=== PATIENT | female | born 1970 | race Caucasian/White ===

== ENCOUNTER 2017-01-06 01:04 | Emergency (ER) | payer MEDICAID ==
[~2017-01-06] VITALS: Ht 157.5 cm; Wt 85.0 kg
[~2017-01-06 01:04] MED LIST: ALBU18HF; ALBU2TAB PO; ALBU8.5H5 INH; AMOX-291 PO; ARIP5TAB19 PO; BECL8.7A5 INH; BUSP5TAB2 PO; CLON0.1T12 PO; DIVA500T2 PO; ESCI20TA10 PO; FAMO20TA7 PO; FERR325T20 PO; FLUO20TA25 PO; GABA300C10 PO; GABA800T2 PO; HALDOL; HYDR-3240 PO; HYDR1TAB12 PO; LISI-424 PO; LORA-445 PO; LORA2TAB99 PO; MULT1TAB76 PO; NICO1PAT5 TD; NITR100C6 PO; PRAZ1CAP2 PO; QUET100T4 PO; QUET50TA5 PO; RANI300T3 PO; THIA50TA PO; TRAZODONE; ZOLOFT; depakote; hydroxyzine
[2017-01-06 01:16] VITALS: BP 120/79
== END 2017-01-06 02:05 | disposition left against medical advice (07) ==
LOC: ED 01:59
DX: R45.851 Suicidal ideations (principal); Z53.21 Procedure and treatment not carried out due to patient leaving prior to being seen by health care provider

== ENCOUNTER 2017-01-14 17:41 | Inpatient (IN) | payer MEDICAID ==
[~2017-01-14] VITALS: Ht 167.6 cm; Wt 90.1 kg
[2017-01-14] MEDS ORDERED: QUET100T PO (18:02)
[2017-01-14] MEDS ORDERED: QUET200T PO (18:02)
[2017-01-14] MEDS ORDERED: NALOXONE 0.4 MG/ML, 1ML ONE ×2 (18:25→19:45)
[2017-01-14] MEDS ORDERED: NALOXONE 0.4 MG/ML, 1ML IVPush PRN (18:30)
[2017-01-14 18:55] LABS: HEMOGLOBIN 14.3 g/dL (11.7-16.4)
[2017-01-14 18:59] LABS: BLOOD UREA NITROGEN 6 mg/dL (7-18)
[2017-01-14 19:11] LABS: ACETAMINOPHEN < 2 mcg/mL (10-30)
[2017-01-14] MEDS ORDERED: NALOXONE 1 MG/ML, 2ML ONE (19:47)
[2017-01-14] MEDS ORDERED: NALOXONE IV SCH (20:00)
[2017-01-14] MEDS ORDERED: SODIUM CHLORIDE 0.9% 1,000ML IVBOLUS ONE (20:00)
[2017-01-14] MEDS ORDERED: NALOXONE 1 MG/ML, 2ML IVPush ONE ×2 (20:00)
[2017-01-14] MEDS ORDERED: SODIUM CHLORIDE 0.9% IV SCH (20:00)
[2017-01-14] MEDS ORDERED: NALOXONE 10 MG in SODIUM CHLORIDE 0.9% 1,000 ML IV SCH (20:30)
[2017-01-14] MEDS: NALOXONE 10 MG in SODIUM CHLORIDE 0.9% 1,000 ML IV SCH (20:54)
[2017-01-14] MEDS ORDERED: POLYETHYLENE GLYCOL 17 GM PACKET PO PRN (21:30)
[2017-01-14] MEDS ORDERED: DOCUSATE 100 MG CAPSULE PO PRN (21:30)
[2017-01-14] MEDS ORDERED: LABETALOL 5MG/ML, 20ML IV PRN (21:30)
[2017-01-14] MEDS ORDERED: ONDANSETRON 2MG/ML, 2ML IVP PRN (21:30)
[2017-01-14] MEDS ORDERED: BISACODYL 10 MG SUPP PR PRN (21:30)
[2017-01-14] MEDS ORDERED: NS + 20MEQ KCL 1,000 ML IV ONE (22:39)
[2017-01-14] MEDS ORDERED: ENOXAPARIN 40 MG/0.4 ML ONE (22:39)
[2017-01-14] MEDS ORDERED: FAMOTIDINE 20 MG/2 ML ONE (22:41)
[2017-01-14] MEDS: NS + 20MEQ KCL 1,000 ML IV SCH (22:42)
[2017-01-14] MEDS: FAMOTIDINE 20 MG/2 ML IV SCH (22:43)
[2017-01-14] MEDS: ENOXAPARIN 40 MG/0.4 ML SQ SCH (22:45)
[2017-01-15 01:25] LABS: DAU SCREEN DISCLAIMER
[2017-01-15] MEDS ORDERED: NALOXONE 1 MG/ML, 2ML ONE (02:18)
[2017-01-15] MEDS: NALOXONE 10 MG in SODIUM CHLORIDE 0.9% 1,000 ML IV SCH ×3 (02:22→11:29)
[2017-01-15] MEDS ORDERED: NS + 20MEQ KCL 1,000 ML IV ONE (04:34)
[2017-01-15] MEDS: NS + 20MEQ KCL 1,000 ML IV SCH ×3 (04:37→22:26)
[2017-01-15] MEDS ORDERED: TRAZ100T15 PO (05:40)
[2017-01-15] MEDS ORDERED: FLUO10CA13 PO (05:40)
[2017-01-15 09:12] LABS: ASPARTATE AMINO TRANSFERASE 13 U/L (15-37); BLOOD UREA NITROGEN 6 mg/dL (7-18)
[2017-01-15] MEDS ORDERED: FAMOTIDINE 20 MG/2 ML ONE (09:17)
[2017-01-15] MEDS: FAMOTIDINE 20 MG/2 ML IV SCH (09:19)
[2017-01-15 11:26] VITALS: BP 141/91
[2017-01-15 13:41] VITALS: BP 128/80
[2017-01-15 18:36] VITALS: BP 120/77
[2017-01-15] MEDS: ENOXAPARIN 40 MG/0.4 ML SQ SCH (21:57)
[2017-01-15] MEDS: LORazepam 2 MG/ML, 1ML IVPush PRN (22:27)
[2017-01-16] MEDS: LORazepam 2 MG/ML, 1ML IVPush PRN ×3 (01:17→09:03)
[2017-01-16 01:19] VITALS: BP 136/64
[2017-01-16] MEDS: NS + 20MEQ KCL 1,000 ML IV SCH ×3 (06:51→23:08)
[2017-01-16 06:54] VITALS: BP 145/92
[2017-01-16 14:18] VITALS: BP 152/90
[2017-01-16] MEDS: ACETAMINOPHEN 325 MG TABLET PO PRN (14:42)
[2017-01-16 19:17] VITALS: BP 137/86
[2017-01-16] MEDS: ENOXAPARIN 40 MG/0.4 ML SQ SCH (21:18)
[2017-01-17] VITALS (8 sets, daily range): BP systolic 147–171; BP diastolic 88–113
[2017-01-17] MEDS: NS + 20MEQ KCL 1,000 ML IV SCH ×2 (08:51→15:16)
[2017-01-17] MEDS: ACETAMINOPHEN 325 MG TABLET PO PRN (13:34)
[2017-01-17] MEDS: LISINOPRIL 5 MG TABLET PO SCH (20:01)
[2017-01-17] MEDS: ENOXAPARIN 40 MG/0.4 ML SQ SCH (21:30)
[2017-01-18 04:02] VITALS: BP 140/87
[2017-01-18 08:45] VITALS: BP 124/81
[2017-01-18] MEDS: LISINOPRIL 5 MG TABLET PO SCH (09:32)
[2017-01-18] MEDS: ACETAMINOPHEN 325 MG TABLET PO PRN (09:32)
[2017-01-18] MEDS ORDERED: ONDANSETRON 4 MG TABLET PO PRN (13:00)
[2017-01-18] MEDS ORDERED: BUTALB/APAP/CAFFEINE 50MG/325MG/40MG PO PRN (13:00)
== END 2017-01-18 18:50 | DRG 918 ==
LOC: ED 18:09 → EDIP 20:45 → 5SO 01-15 11:11 → 3E 01-17 17:00
PROVIDERS: ADMIT Internal Medicine; ATTEND Internal Medicine
DX: T42.8X2A Poisoning by antiparkinsonism drugs and other central muscle-tone depressants, intentional self-harm, initial encounter (principal); T42.6X2A Poisoning by other antiepileptic and sedative-hypnotic drugs, intentional self-harm, initial encounter; F43.10 Post-traumatic stress disorder, unspecified; F32.9 Major depressive disorder, single episode, unspecified; I10 Essential (primary) hypertension; Z91.5 Personal history of self-harm; Z83.3 Family history of diabetes mellitus; F17.210 Nicotine dependence, cigarettes, uncomplicated; Y92.89 Other specified places as the place of occurrence of the external cause; E87.6 Hypokalemia; E88.09 Other disorders of plasma-protein metabolism, not elsewhere classified; G89.29 Other chronic pain; M54.9 Dorsalgia, unspecified; J44.9 Chronic obstructive pulmonary disease, unspecified
CPT/HCPCS: 36415; 71010; 80048; 80053; 80307; 80329; 82040; 83735; 84439; 84443; 84703; 85025; 93005; 96361; 96372; 96374; 96375; J1650; J2310; J3480; G0480; J2060; J7030; S0028

== ENCOUNTER 2017-02-04 11:30 | Observation (INO) | payer MEDICAID ==
[~2017-02-04] VITALS: Ht 157.5 cm; Wt 83.0 kg
[~2017-02-04 11:30] MED LIST changes: +FLUO10CA13 PO; +QUET100T PO; +QUET200T PO; +TRAZ100T15 PO
[2017-02-04 12:28] LABS: ASPARTATE AMINO TRANSFERASE 20 U/L (15-37); BLOOD UREA NITROGEN 14 mg/dL (7-18)
[2017-02-04 12:39] LABS: HEMOGLOBIN 16.2 g/dL (11.7-16.4)
[2017-02-04 12:43] LABS: ACETAMINOPHEN < 2 mcg/mL (10-30)
[2017-02-04 13:34] LABS: DAU SCREEN DISCLAIMER
[2017-02-04] MEDS ORDERED: POTASSIUM CHLORIDE 20 MEQ TAB.ER.PRT PO ONE (17:30)
[2017-02-04] MEDS ORDERED: POLYETHYLENE GLYCOL 17 GM PACKET PO PRN (17:30)
[2017-02-04] MEDS ORDERED: ONDANSETRON ODT 4 MG PO PRN (17:30)
[2017-02-04] MEDS ORDERED: POTASSIUM CHLORIDE 20 MEQ TAB.ER.PRT ONE (18:20)
[2017-02-04 19:46] VITALS: BP 137/84
[2017-02-04] MEDS ORDERED: LORazepam 0.5MG TABLET PO ONE (23:00)
[2017-02-05 05:43] LABS: BLOOD UREA NITROGEN 17 mg/dL (7-18)
[2017-02-05 05:45] LABS: HEMOGLOBIN 14.4 g/dL (11.7-16.4)
[2017-02-05 05:48] LABS: ASPARTATE AMINO TRANSFERASE 16 U/L (15-37)
[2017-02-05 07:40] VITALS: BP 129/81
[2017-02-05] MEDS: FOLIC ACID 1 MG TABLET PO SCH (08:15)
[2017-02-05] MEDS: THIAMINE 100MG TABLET PO SCH (08:15)
[2017-02-05] MEDS: SENNA/DOCUSATE TABLET PO SCH (08:17)
[2017-02-05] MEDS: LISINOPRIL 5 MG TABLET PO SCH (09:00)
[2017-02-05] MEDS: FLUOXETINE 20 MG CAPSULE PO SCH (09:00)
[2017-02-05] MEDS ORDERED: ALBUTEROL SULFATE 2.5 MG/3 ML HHN PRN (09:30)
[2017-02-05 19:39] VITALS: BP 127/65
[2017-02-06 07:56] VITALS: BP 133/80
[2017-02-06] MEDS: THIAMINE 100MG TABLET PO SCH (08:50)
[2017-02-06] MEDS: FLUOXETINE 20 MG CAPSULE PO SCH (08:50)
[2017-02-06] MEDS: LISINOPRIL 5 MG TABLET PO SCH (08:51)
[2017-02-06] MEDS: SENNA/DOCUSATE TABLET PO SCH (08:51)
[2017-02-06] MEDS: FOLIC ACID 1 MG TABLET PO SCH (08:51)
[2017-02-06 19:57] VITALS: BP 110/75
[2017-02-06] MEDS ORDERED: CETIRIZINE 10 MG TABLET PO ONE (20:00)
[2017-02-06] MEDS: TRAZODONE 100MG TABLET PO SCH (22:00)
[2017-02-06] MEDS: GABAPENTIN 400 MG CAPSULE PO SCH (22:00)
[2017-02-06] MEDS: FAMOTIDINE 20 MG TABLET PO SCH (22:00)
[2017-02-06] MEDS: QUETIAPINE 200 MG TABLET PO SCH (22:00)
[2017-02-07] MEDS: FLUTICASONE NASAL SPRAY 16GM NAS SCH ×3 (08:00→21:00)
[2017-02-07] MEDS: FLUTICASONE/VILANTEROL 100-25MCG/INH INH SCH ×3 (08:00→22:01)
[2017-02-07] MEDS: GABAPENTIN 400 MG CAPSULE PO SCH ×3 (08:01→21:56)
[2017-02-07] MEDS: CETIRIZINE 10 MG TABLET PO SCH (08:01)
[2017-02-07] MEDS: QUETIAPINE 100MG TABLET PO SCH (08:01)
[2017-02-07] MEDS: THIAMINE 100MG TABLET PO SCH (08:01)
[2017-02-07] MEDS: FOLIC ACID 1 MG TABLET PO SCH (08:02)
[2017-02-07] MEDS: FLUOXETINE 20 MG CAPSULE PO SCH (08:02)
[2017-02-07] MEDS: FAMOTIDINE 20 MG TABLET PO SCH ×2 (08:02→21:56)
[2017-02-07] MEDS: SENNA/DOCUSATE TABLET PO SCH (08:03)
[2017-02-07] MEDS: LISINOPRIL 5 MG TABLET PO SCH (08:03)
[2017-02-07 08:14] VITALS: BP 90/55
[2017-02-07 19:46] VITALS: BP 110/70
[2017-02-07] MEDS: TRAZODONE 100MG TABLET PO SCH (21:56)
[2017-02-07] MEDS: QUETIAPINE 200 MG TABLET PO SCH (21:59)
[2017-02-08 08:52] VITALS: BP 101/57
[2017-02-08] MEDS: LISINOPRIL 5 MG TABLET PO SCH (09:00)
[2017-02-08] MEDS: QUETIAPINE 100MG TABLET PO SCH (09:00)
[2017-02-08] MEDS: FLUTICASONE NASAL SPRAY 16GM NAS SCH ×2 (09:00→20:45)
[2017-02-08] MEDS: SENNA/DOCUSATE TABLET PO SCH (09:02)
[2017-02-08] MEDS: FAMOTIDINE 20 MG TABLET PO SCH ×2 (09:03→20:46)
[2017-02-08] MEDS: GABAPENTIN 400 MG CAPSULE PO SCH ×2 (09:03→16:09)
[2017-02-08] MEDS: CETIRIZINE 10 MG TABLET PO SCH (09:03)
[2017-02-08] MEDS: THIAMINE 100MG TABLET PO SCH (09:03)
[2017-02-08] MEDS: FLUOXETINE 20 MG CAPSULE PO SCH (09:03)
[2017-02-08] MEDS: FOLIC ACID 1 MG TABLET PO SCH (09:03)
[2017-02-08] MEDS: ACETAMINOPHEN 325 MG TABLET PO PRN (18:34)
[2017-02-08 19:44] VITALS: BP 137/93
[2017-02-08] MEDS: TRAZODONE 100MG TABLET PO SCH (20:46)
[2017-02-08] MEDS: QUETIAPINE 200 MG TABLET PO SCH (20:46)
[2017-02-08] MEDS: GABAPENTIN 300 MG CAPSULE PO SCH (20:46)
[2017-02-09] MEDS: ACETAMINOPHEN 325 MG TABLET PO PRN ×2 (06:02→13:03)
[2017-02-09] MEDS: FLUTICASONE NASAL SPRAY 16GM NAS SCH ×2 (07:39→21:00)
[2017-02-09] MEDS: GABAPENTIN 300 MG CAPSULE PO SCH ×3 (07:40→20:31)
[2017-02-09] MEDS: FLUOXETINE 20 MG CAPSULE PO SCH (07:41)
[2017-02-09] MEDS: FAMOTIDINE 20 MG TABLET PO SCH ×2 (07:41→20:31)
[2017-02-09] MEDS: SENNA/DOCUSATE TABLET PO SCH (07:41)
[2017-02-09] MEDS: FOLIC ACID 1 MG TABLET PO SCH (07:42)
[2017-02-09] MEDS: LISINOPRIL 5 MG TABLET PO SCH (07:42)
[2017-02-09] MEDS: THIAMINE 100MG TABLET PO SCH (07:42)
[2017-02-09] MEDS: QUETIAPINE 100MG TABLET PO SCH (07:43)
[2017-02-09] MEDS: CETIRIZINE 10 MG TABLET PO SCH (07:43)
[2017-02-09] MEDS: FLUTICASONE/VILANTEROL 100-25MCG/INH INH SCH ×2 (07:44→20:32)
[2017-02-09 08:42] VITALS: BP 135/84
[2017-02-09] MEDS ORDERED: NICOTINE GUM 2 MG BC PRN (19:00)
[2017-02-09 19:27] VITALS: BP 141/80
[2017-02-09] MEDS: QUETIAPINE 200 MG TABLET PO SCH (20:31)
[2017-02-09] MEDS: TRAZODONE 100MG TABLET PO SCH (20:31)
[2017-02-10] MEDS ORDERED: CYCLOBENZAPRINE 10 MG TABLET PO ONE (02:00)
[2017-02-10] MEDS ORDERED: HYDROcodone/APAP 5/325 TABLET PO ONE (02:00)
[2017-02-10] MEDS: FLUTICASONE/VILANTEROL 100-25MCG/INH INH SCH (07:07)
[2017-02-10] MEDS: GABAPENTIN 300 MG CAPSULE PO SCH (07:08)
[2017-02-10] MEDS: FLUTICASONE NASAL SPRAY 16GM NAS SCH (07:08)
[2017-02-10] MEDS: FOLIC ACID 1 MG TABLET PO SCH (07:10)
[2017-02-10] MEDS: LISINOPRIL 5 MG TABLET PO SCH (07:10)
[2017-02-10] MEDS: FLUOXETINE 20 MG CAPSULE PO SCH (07:10)
[2017-02-10] MEDS: FAMOTIDINE 20 MG TABLET PO SCH (07:10)
[2017-02-10] MEDS: CETIRIZINE 10 MG TABLET PO SCH (07:11)
[2017-02-10] MEDS: SENNA/DOCUSATE TABLET PO SCH (07:11)
[2017-02-10] MEDS: QUETIAPINE 100MG TABLET PO SCH (07:11)
[2017-02-10] MEDS: THIAMINE 100MG TABLET PO SCH (07:11)
[2017-02-10 07:25] VITALS: BP 134/82
== END 2017-02-10 08:39 ==
LOC: ED 14:21 → EDIP 15:28 → INTOOBSV 15:28 → 3E 17:37
PROVIDERS: ADMIT Hospitalist; ATTEND Hospitalist
DX: T42.6X2A Poisoning by other antiepileptic and sedative-hypnotic drugs, intentional self-harm, initial encounter (principal); E44.1 Mild protein-calorie malnutrition; F32.9 Major depressive disorder, single episode, unspecified; F41.9 Anxiety disorder, unspecified; J45.909 Unspecified asthma, uncomplicated; I10 Essential (primary) hypertension; M54.9 Dorsalgia, unspecified; F15.10 Other stimulant abuse, uncomplicated; J44.9 Chronic obstructive pulmonary disease, unspecified; F10.229 Alcohol dependence with intoxication, unspecified; F17.210 Nicotine dependence, cigarettes, uncomplicated; Y92.89 Other specified places as the place of occurrence of the external cause
CPT/HCPCS: 36415; 80053; 80307; 80329; 81001; 84439; 84443; 84703; 85025; 87086; 93005; 99285; G0378; Q0177; G0480

== ENCOUNTER 2017-03-18 09:24 | Emergency (ER) | payer MEDICAID ==
[~2017-03-18] VITALS: Ht 157.5 cm; Wt 85.2 kg
[2017-03-18] MEDS ORDERED: SODIUM CHLORIDE 0.9% 1,000 ML IV ONE (11:17)
[2017-03-18] MEDS ORDERED: SODIUM CHLORIDE FLUSH 10ML SYR IVF ONE (11:30)
[2017-03-18] MEDS ORDERED: THIAMINE 100MG TABLET PO ONE (11:30)
[2017-03-18] MEDS ORDERED: SODIUM CHLORIDE 0.9% 1,000ML IVBOLUS ONE (11:30)
[2017-03-18 11:55] LABS: ASPARTATE AMINO TRANSFERASE 26 U/L (15-37); BLOOD UREA NITROGEN 16 mg/dL (7-18)
[2017-03-18 12:03] LABS: ACETAMINOPHEN < 2 mcg/mL (10-30)
[2017-03-18] MEDS ORDERED: THIAMINE 100MG TABLET ONE (12:08)
[2017-03-18 13:44] LABS: DAU SCREEN DISCLAIMER
[2017-03-18 14:53] VITALS: BP 123/60
== END 2017-03-18 15:03 | disposition home or self-care (01) ==
LOC: ED 11:01
DX: F15.10 Other stimulant abuse, uncomplicated (principal); F15.120 Other stimulant abuse with intoxication, uncomplicated; N30.90 Cystitis, unspecified without hematuria; I10 Essential (primary) hypertension; J44.9 Chronic obstructive pulmonary disease, unspecified; F17.200 Nicotine dependence, unspecified, uncomplicated
CPT/HCPCS: 36415; 70450; 80053; 80307; 80329; 81001; 82140; 84703; 85025; 87086; 93005; 96360; 96361; 99285; J7030; G0480

== ENCOUNTER 2017-03-21 13:26 | Emergency (ER) | payer MEDICAID ==
[~2017-03-21] VITALS: Ht 157.5 cm; Wt 82.0 kg
[2017-03-21 13:41] VITALS: BP 125/82
[2017-03-21 14:21] LABS: ASPARTATE AMINO TRANSFERASE 19 U/L (15-37); BLOOD UREA NITROGEN 8 mg/dL (7-18)
[2017-03-21 14:31] LABS: ACETAMINOPHEN < 2 mcg/mL (10-30)
== END 2017-03-21 16:41 | disposition home or self-care (01) ==
LOC: ED 15:33
DX: F33.8 Other recurrent depressive disorders (principal); I10 Essential (primary) hypertension; J44.9 Chronic obstructive pulmonary disease, unspecified; Z88.1 Allergy status to other antibiotic agents; Z72.9 Problem related to lifestyle, unspecified
CPT/HCPCS: 36415; 71010; 80053; 80307; 80329; 82140; 85025; 93005; 99285; G0480

== ENCOUNTER 2017-05-08 20:24 | Observation (INO) | payer MEDICAID ==
[~2017-05-08] VITALS: Ht 157.5 cm; Wt 82.5 kg
[2017-05-08 21:20] LABS: ASPARTATE AMINO TRANSFERASE 272 U/L (15-37); BLOOD UREA NITROGEN 8 mg/dL (7-18)
[2017-05-08 21:21] LABS: ACETAMINOPHEN < 2 mcg/mL (10-30)
[2017-05-08 23:48] LABS: DAU SCREEN DISCLAIMER
[2017-05-09] MEDS ORDERED: POTASSIUM CHLORIDE 20 MEQ TAB.ER.PRT PO ONE (05:30)
[2017-05-09] MEDS ORDERED: BISACODYL 10 MG SUPP PR PRN (06:00)
[2017-05-09] MEDS ORDERED: ALBUTEROL SULFATE 2.5 MG/3 ML NPPB PRN (06:00)
[2017-05-09] MEDS ORDERED: DOCUSATE 100 MG CAPSULE PO PRN (06:00)
[2017-05-09] MEDS ORDERED: POLYETHYLENE GLYCOL 17 GM PACKET PO PRN (06:00)
[2017-05-09] MEDS ORDERED: LORazepam 1MG TABLET PO PRN ×2 (06:00)
[2017-05-09 06:07] VITALS: BP 123/82
[2017-05-09] MEDS: QUETIAPINE 25MG TABLET PO SCH ×2 (06:09→20:13)
[2017-05-09] MEDS: NICOTINE 14MG/24 HR PATCH.TD24 TD SCH (06:09)
[2017-05-09 07:41] VITALS: BP 121/74
[2017-05-09] MEDS: MULTIVITAMINS/MINERALS TABLET PO SCH (08:17)
[2017-05-09] MEDS ORDERED: QUET25TA PO (08:34)
[2017-05-09] MEDS: ENOXAPARIN 40 MG/0.4 ML SQ SCH (09:32)
[2017-05-09] MEDS: LORazepam 1MG TABLET PO PRN (16:53)
[2017-05-09 19:34] VITALS: BP 148/89
[2017-05-09] MEDS: SULFAMETH./TRIMETHOPRIM DS 800MG/160MG TABLET PO SCH (20:13)
[2017-05-09 23:40] VITALS: BP 141/83
[2017-05-10] MEDS: LORazepam 0.5MG TABLET PO PRN (04:59)
[2017-05-10 05:18] LABS: ASPARTATE AMINO TRANSFERASE 44 U/L (15-37); BLOOD UREA NITROGEN 13 mg/dL (7-18)
[2017-05-10 07:33] VITALS: BP 120/74
[2017-05-10] MEDS: ONDANSETRON ODT 4 MG PO PRN (08:29)
[2017-05-10] MEDS: ENOXAPARIN 40 MG/0.4 ML SQ SCH (08:29)
[2017-05-10] MEDS: MULTIVITAMINS/MINERALS TABLET PO SCH (08:29)
[2017-05-10] MEDS: SULFAMETH./TRIMETHOPRIM DS 800MG/160MG TABLET PO SCH ×2 (08:29→21:00)
[2017-05-10] MEDS: NICOTINE 14MG/24 HR PATCH.TD24 TD SCH (08:30)
[2017-05-10] MEDS: LORazepam 1MG TABLET PO PRN ×2 (12:24→22:15)
[2017-05-10 19:44] VITALS: BP 150/96
[2017-05-10] MEDS: QUETIAPINE 25MG TABLET PO SCH (21:00)
[2017-05-11 07:41] VITALS: BP 116/76
[2017-05-11] MEDS: SULFAMETH./TRIMETHOPRIM DS 800MG/160MG TABLET PO SCH ×2 (09:14→20:38)
[2017-05-11] MEDS: MULTIVITAMINS/MINERALS TABLET PO SCH (09:14)
[2017-05-11] MEDS: ENOXAPARIN 40 MG/0.4 ML SQ SCH (09:15)
[2017-05-11] MEDS: QUETIAPINE 25MG TABLET PO SCH ×2 (09:17→12:28)
[2017-05-11] MEDS: NICOTINE 14MG/24 HR PATCH.TD24 TD SCH (09:17)
[2017-05-11] MEDS ORDERED: QUET25TA PO (11:03)
[2017-05-11] MEDS: LORazepam 1MG TABLET PO PRN ×2 (16:53→22:44)
[2017-05-11 20:30] VITALS: BP 143/90
[2017-05-11] MEDS: QUETIAPINE 100MG TABLET PO SCH (20:38)
[2017-05-11] MEDS: ACETAMINOPHEN 325 MG TABLET PO PRN (20:38)
[2017-05-12 08:20] VITALS: BP 123/79
[2017-05-12] MEDS: MULTIVITAMINS/MINERALS TABLET PO SCH (09:56)
[2017-05-12] MEDS: QUETIAPINE 25MG TABLET PO SCH ×2 (09:56→13:19)
[2017-05-12] MEDS: NICOTINE 14MG/24 HR PATCH.TD24 TD SCH (09:57)
[2017-05-12] MEDS: SULFAMETH./TRIMETHOPRIM DS 800MG/160MG TABLET PO SCH ×2 (09:57→20:32)
[2017-05-12] MEDS: ENOXAPARIN 40 MG/0.4 ML SQ SCH (09:57)
[2017-05-12] MEDS: LORazepam 1MG TABLET PO PRN ×2 (12:13→17:28)
[2017-05-12] MEDS: ACETAMINOPHEN 325 MG TABLET PO PRN (17:28)
[2017-05-12 19:38] VITALS: BP 138/91
[2017-05-12] MEDS: QUETIAPINE 100MG TABLET PO SCH (20:32)
[2017-05-13 08:00] VITALS: BP 137/91
[2017-05-13] MEDS: MULTIVITAMINS/MINERALS TABLET PO SCH (08:33)
[2017-05-13] MEDS: SULFAMETH./TRIMETHOPRIM DS 800MG/160MG TABLET PO SCH ×2 (08:33→20:31)
[2017-05-13] MEDS: QUETIAPINE 25MG TABLET PO SCH ×2 (08:34→12:50)
[2017-05-13] MEDS: NICOTINE 14MG/24 HR PATCH.TD24 TD SCH (08:34)
[2017-05-13] MEDS: ENOXAPARIN 40 MG/0.4 ML SQ SCH (08:35)
[2017-05-13] MEDS: LORazepam 1MG TABLET PO PRN ×3 (08:35→14:49)
[2017-05-13] MEDS: ACETAMINOPHEN 325 MG TABLET PO PRN (15:35)
[2017-05-13] MEDS ORDERED: IBUPROFEN 200 MG TABLET PO PRN (16:30)
[2017-05-13 20:10] VITALS: BP 145/88
[2017-05-13] MEDS: QUETIAPINE 100MG TABLET PO SCH (20:31)
[2017-05-13 22:36] VITALS: BP 128/85
[2017-05-14 08:50] VITALS: BP 134/85
[2017-05-14] MEDS: NICOTINE 14MG/24 HR PATCH.TD24 TD SCH (09:00)
[2017-05-14] MEDS: QUETIAPINE 25MG TABLET PO SCH ×2 (09:48→12:24)
[2017-05-14] MEDS: SULFAMETH./TRIMETHOPRIM DS 800MG/160MG TABLET PO SCH ×2 (09:48→20:24)
[2017-05-14] MEDS: MULTIVITAMINS/MINERALS TABLET PO SCH (09:48)
[2017-05-14] MEDS: ENOXAPARIN 40 MG/0.4 ML SQ SCH (09:48)
[2017-05-14] MEDS: LORazepam 0.5MG TABLET PO PRN (10:35)
[2017-05-14] MEDS: LORazepam 1MG TABLET PO PRN (19:37)
[2017-05-14] MEDS ORDERED: KETOROLAC 30 MG/1 ML IVPush SCH (20:00)
[2017-05-14] MEDS: QUETIAPINE 100MG TABLET PO SCH (20:28)
[2017-05-14 20:45] VITALS: BP 128/84
[2017-05-14] MEDS: KETOROLAC 30 MG/1 ML IM SCH (20:46)
[2017-05-15] MEDS: KETOROLAC 30 MG/1 ML IM SCH ×3 (06:40→15:35)
[2017-05-15] MEDS: LORazepam 1MG TABLET PO PRN ×4 (06:44→21:40)
[2017-05-15 07:34] VITALS: BP 125/85
[2017-05-15] MEDS: NICOTINE 14MG/24 HR PATCH.TD24 TD SCH (08:30)
[2017-05-15] MEDS: MULTIVITAMINS/MINERALS TABLET PO SCH (09:03)
[2017-05-15] MEDS: QUETIAPINE 25MG TABLET PO SCH ×2 (09:03→12:16)
[2017-05-15] MEDS: SULFAMETH./TRIMETHOPRIM DS 800MG/160MG TABLET PO SCH ×2 (09:04→21:42)
[2017-05-15] MEDS: ENOXAPARIN 40 MG/0.4 ML SQ SCH (09:22)
[2017-05-15 19:44] VITALS: BP 143/92
[2017-05-15] MEDS: QUETIAPINE 100MG TABLET PO SCH (20:27)
[2017-05-16] MEDS: KETOROLAC 30 MG/1 ML IM SCH ×4 (00:30→12:25)
[2017-05-16] MEDS: LORazepam 1MG TABLET PO PRN ×4 (02:42→13:10)
[2017-05-16] MEDS: QUETIAPINE 25MG TABLET PO SCH ×2 (07:34→12:26)
[2017-05-16] MEDS: NICOTINE 14MG/24 HR PATCH.TD24 TD SCH (07:34)
[2017-05-16] MEDS: SULFAMETH./TRIMETHOPRIM DS 800MG/160MG TABLET PO SCH ×2 (07:34→20:29)
[2017-05-16] MEDS: MULTIVITAMINS/MINERALS TABLET PO SCH (07:34)
[2017-05-16] MEDS: ENOXAPARIN 40 MG/0.4 ML SQ SCH (07:39)
[2017-05-16 07:53] VITALS: BP_SYST 115; BP_SYST 119; BP_DIAS 71; BP_DIAS 80
[2017-05-16] MEDS: BUTALB/APAP/CAFFEINE 50MG/325MG/40MG PO PRN ×2 (12:26→22:41)
[2017-05-16 13:07] VITALS: BP 139/91
[2017-05-16] MEDS: KETOROLAC 30 MG/1 ML IM PRN (16:00)
[2017-05-16] MEDS ORDERED: METOCLOPRAMIDE 5 MG/ML, 2ML IM ONE (17:30)
[2017-05-16] MEDS ORDERED: DIPHENHYDRAMINE 50 MG/ML, 1ML IM ONE ×2 (18:00→21:00)
[2017-05-16 19:55] VITALS: BP 110/66
[2017-05-16] MEDS: QUETIAPINE 100MG TABLET PO SCH (20:29)
[2017-05-17 07:15] VITALS: BP 133/77
[2017-05-17] MEDS: SULFAMETH./TRIMETHOPRIM DS 800MG/160MG TABLET PO SCH (07:26)
[2017-05-17] MEDS: MULTIVITAMINS/MINERALS TABLET PO SCH (07:26)
[2017-05-17] MEDS: QUETIAPINE 25MG TABLET PO SCH ×2 (07:26→12:00)
[2017-05-17] MEDS: KETOROLAC 30 MG/1 ML IM PRN ×2 (07:26→16:02)
[2017-05-17] MEDS: NICOTINE 14MG/24 HR PATCH.TD24 TD SCH (07:37)
[2017-05-17] MEDS: ENOXAPARIN 40 MG/0.4 ML SQ SCH (07:37)
[2017-05-17] MEDS: LORazepam 1MG TABLET PO PRN ×3 (07:42→17:02)
[2017-05-17] MEDS: BUTALB/APAP/CAFFEINE 50MG/325MG/40MG PO PRN (12:17)
[2017-05-17] MEDS ORDERED: metroNIDAZOLE 500 MG TABLET PO ONE (16:00)
[2017-05-17 20:01] VITALS: BP 128/82
[2017-05-17] MEDS: QUETIAPINE 100MG TABLET PO SCH (20:01)
[2017-05-18] MEDS: LORazepam 1MG TABLET PO PRN ×2 (04:25→15:46)
[2017-05-18] MEDS: ONDANSETRON ODT 4 MG PO PRN (04:25)
[2017-05-18 05:10] LABS: BLOOD UREA NITROGEN 17 mg/dL (7-18)
[2017-05-18 08:00] VITALS: BP 122/74
[2017-05-18] MEDS: MULTIVITAMINS/MINERALS TABLET PO SCH (09:34)
[2017-05-18] MEDS: NICOTINE 14MG/24 HR PATCH.TD24 TD SCH (09:35)
[2017-05-18] MEDS: ENOXAPARIN 40 MG/0.4 ML SQ SCH (09:35)
[2017-05-18] MEDS: QUETIAPINE 25MG TABLET PO SCH ×2 (09:44→12:00)
[2017-05-18] MEDS: ACETAMINOPHEN 325 MG TABLET PO PRN (16:33)
[2017-05-18] MEDS: CYCLOBENZAPRINE 10 MG TABLET PO PRN (19:07)
[2017-05-18 19:33] VITALS: BP 138/88
[2017-05-18] MEDS: QUETIAPINE 100MG TABLET PO SCH (20:38)
[2017-05-19 07:23] VITALS: BP 118/75
[2017-05-19] MEDS: ENOXAPARIN 40 MG/0.4 ML SQ SCH (09:00)
[2017-05-19] MEDS: NICOTINE 14MG/24 HR PATCH.TD24 TD SCH (09:00)
[2017-05-19] MEDS: MULTIVITAMINS/MINERALS TABLET PO SCH (09:27)
[2017-05-19] MEDS: LORazepam 1MG TABLET PO PRN ×2 (09:28→16:14)
[2017-05-19] MEDS: QUETIAPINE 25MG TABLET PO SCH ×2 (09:28→12:34)
[2017-05-19] MEDS: KETOROLAC 30 MG/1 ML IM PRN (18:33)
[2017-05-19 19:43] VITALS: BP 146/81
[2017-05-19] MEDS: CYCLOBENZAPRINE 10 MG TABLET PO PRN (20:51)
[2017-05-19] MEDS: QUETIAPINE 100MG TABLET PO SCH (20:52)
[2017-05-19] MEDS: BUTALB/APAP/CAFFEINE 50MG/325MG/40MG PO PRN (21:00)
[2017-05-20 07:25] VITALS: BP 132/88
[2017-05-20] MEDS: MULTIVITAMINS/MINERALS TABLET PO SCH (08:13)
[2017-05-20] MEDS: QUETIAPINE 25MG TABLET PO SCH ×2 (08:13→11:57)
[2017-05-20] MEDS: NICOTINE 14MG/24 HR PATCH.TD24 TD SCH (08:14)
[2017-05-20] MEDS: ENOXAPARIN 40 MG/0.4 ML SQ SCH (08:14)
[2017-05-20] MEDS: LORazepam 1MG TABLET PO PRN ×3 (08:30→20:16)
[2017-05-20] MEDS: BUTALB/APAP/CAFFEINE 50MG/325MG/40MG PO PRN ×2 (09:08→20:16)
[2017-05-20] MEDS: CYCLOBENZAPRINE 10 MG TABLET PO PRN (16:44)
[2017-05-20 19:45] VITALS: BP 127/85
[2017-05-20] MEDS: QUETIAPINE 100MG TABLET PO SCH (20:17)
[2017-05-20] MEDS ORDERED: ALBUTEROL SULFATE 2.5 MG/3 ML NPPB PRN (21:30)
[2017-05-20] MEDS ORDERED: BISACODYL 10 MG SUPP PR PRN (21:30)
[2017-05-20] MEDS ORDERED: LORazepam 1MG TABLET PO PRN ×2 (21:30)
[2017-05-20] MEDS ORDERED: ACETAMINOPHEN 325 MG TABLET PO PRN (21:30)
[2017-05-20] MEDS ORDERED: POLYETHYLENE GLYCOL 17 GM PACKET PO PRN (21:30)
[2017-05-20] MEDS ORDERED: DOCUSATE 100 MG CAPSULE PO PRN (21:30)
[2017-05-20] MEDS ORDERED: ONDANSETRON ODT 4 MG PO PRN (21:30)
[2017-05-21 06:33] VITALS: BP 143/87
[2017-05-21] MEDS: LORazepam 1MG TABLET PO PRN ×2 (06:34→12:22)
[2017-05-21 07:22] VITALS: BP 138/92
[2017-05-21] MEDS: QUETIAPINE 25MG TABLET PO SCH ×2 (08:44→12:00)
[2017-05-21] MEDS: MULTIVITAMINS/MINERALS TABLET PO SCH (08:44)
[2017-05-21] MEDS: NICOTINE 14MG/24 HR PATCH.TD24 TD SCH (08:45)
[2017-05-21] MEDS: ENOXAPARIN 40 MG/0.4 ML SQ SCH (08:45)
[2017-05-21] MEDS ORDERED: MULT-484 PO (12:47)
[2017-05-21] MEDS ORDERED: NICO1PAT4 TD (12:47)
[2017-05-21] MEDS ORDERED: FLUOXETINE 20 MG CAPSULE PO SCH (13:00)
[2017-05-21] MEDS ORDERED: FLUO20CA19 PO (15:55)
[2017-05-21] MEDS ORDERED: QUET100T PO ×2 (16:02)
[2017-05-21] MEDS ORDERED: FLUO20CA8 PO (16:02)
[2017-05-21] MEDS ORDERED: QUETIAPINE 100MG TABLET PO SCH (21:00)
[2017-05-22] MEDS ORDERED: QUETIAPINE 100MG TABLET PO SCH (09:00)
== END 2017-05-21 16:30 | disposition home or self-care (01) ==
LOC: ED 21:13 → EDIP 05-09 02:19 → 3E 05-09 05:50
PROVIDERS: ADMIT Internal Medicine; ATTEND Internal Medicine
DX: R45.851 Suicidal ideations (principal); M25.551 Pain in right hip; R44.1 Visual hallucinations; R44.0 Auditory hallucinations; F15.10 Other stimulant abuse, uncomplicated; E87.6 Hypokalemia; F43.10 Post-traumatic stress disorder, unspecified; F32.9 Major depressive disorder, single episode, unspecified; J44.9 Chronic obstructive pulmonary disease, unspecified; I10 Essential (primary) hypertension; F10.220 Alcohol dependence with intoxication, uncomplicated; Z91.5 Personal history of self-harm; R94.5 Abnormal results of liver function studies
CPT/HCPCS: 36415; 70450; 73502; 80048; 80053; 80307; 80329; 81001; 84439; 84443; 84703; 85025; 86592; 87086; 87147; 96372; 99285; G0378; J1200; J1650; J1885; J2765; Q0162; G0480